=== PATIENT | female | born 1960 | race Caucasian/White ===

== ENCOUNTER → 2017-12-22 | Outpatient (CLI) | payer OTHER ==
[~2017-12-22] MED LIST: DIOVAN HCT 12.51 TA6 PO; EC NAPROSYN500 MG PO; FLEXERIL5 MG PO; HYDROCODONE BIT1 T11 PO; MOTRIN600 MG PO; ULTRAM50 MG PO
== END | disposition home or self-care (01) ==
LOC: RAD 07:12
DX: M25.562 Pain in left knee (principal)

== ENCOUNTER 2018-08-10 11:43 | Emergency (ER) | payer OTHER ==
[~2018-08-10] VITALS: Ht 167.6 cm; Wt 97.1 kg
--- NOTE | ~2018-08-10 | EKG ---
[place], [place] ELECTROCARDIOGRAM REPORT NAME: ALEXANDER DAMIAN UNIT #: [id number] ROOM: DOCTOR: EPIPHMANUEL DRAFT REPORT BIRTHDATE: [birth year] [facility] Test Date: 2018-08-10 Test Time: 11:45:35 Pat Name: ALEXANDER DAMIAN Department: Room: Gender: F De Icer Finisher: : 1960 Requested By: ALICE ANDRADE Order Number: [id number] Reading MD: Rachael Mackay MD Measurements Intervals Collins Rate: 66 P: 46 RI: 160 QRS: 61 QRSD: 120 T: 61 QT: 427 QTc: 448 Interpretive Statements Sinus rhythm Nonspecific intraventricular conduction delay No previous ECG available for comparison Electronically Signed On 08-11-2018 15:43:04 PDT by Rachael Mackay MD CM:EKGRPT:ELECTROCARDIOGRAM REPORT [id number] ALICE PABLO DRAFT REPORT ALICE ANDRADE DO
[2018-08-10 12:09] LABS: BASO # 0.1 10*3/uL (0.0-0.1); BASO % 0.6 % (0.0-1.0); EOS # 0.2 10*3/uL (0.0-0.4); EOS % 1.8 % (1.0-4.0); HEMATOCRIT 39.4 % (37.0-47.0); HEMOGLOBIN 13.1 g/dl (12.0-16.0); LYMPH # 2.3 10*3/uL (1.3-4.4); MEAN CELL VOLUME 93.1 fl (81.0-99.0); MEAN CORPUSCULAR HGB CONC 33.2 g/dl (33.0-37.0); MONO # 0.4 10*3/uL (0.1-1.0); MONO % 4.3 % (3.0-9.0); NEUT # 5.9 10*3/uL (2.3-7.9); PLATELET COUNT AUTOMATED 263 10*3/uL (130-400); RED BLOOD COUNT 4.23 10*6/uL (4.10-5.10); RED CELL DISTRI WIDTH 14.6 % (0-14.5); WHITE BLOOD COUNT 8.7 10*3/uL (4.8-10.8)
[2018-08-10 12:21] LABS: ACT PARTIAL THROMBO TIME 25.3 SECONDS (20.0-32.1); INTERNATIONAL NORM RATIO 0.9 (2.0-3.5)
[2018-08-10 12:29] LABS: ALBUMIN 2.9 gm/dl (3.1-4.5); ALKALINE PHOSPHATASE 116 U/L (45-117); BUN 23 mg/dl (7-24); CHLORIDE 107 mmol/L (98-107); CREATININE 1.87 mg/dL (0.55-1.02); POTASSIUM 3.5 mmol/L (3.5-5.1); SGOT/AST 47 IU/L (3-35); SGPT/ALT 62 U/L (12-78); SODIUM 139 mmol/L (136-145); TOTAL PROTEIN 6.9 gm/dL (6.4-8.2)
[2018-08-10 12:46] LABS: TROPONIN I < 0.015 ng/ml (<0.045)
== END 2018-08-10 14:54 | disposition left against medical advice (07) ==
LOC: ED 11:43
PROVIDERS: Emergency Medicine
DX: N17.9 Acute kidney failure, unspecified (principal); I95.9 Hypotension, unspecified; Z79.899 Other long term (current) drug therapy